=== PATIENT | male | born 1995 | race Caucasian/White ===

== ENCOUNTER 2016-07-15 20:37 | Emergency (ER) | payer BC, OTHER ==
[~2016-07-15] VITALS: Ht 170.2 cm; Wt 67.5 kg
[2016-07-15 20:38] VITALS: Ht 170.2 cm; Wt 67.5 kg
[2016-07-15] MEDS ORDERED: KETOROLAC 15 MG INJ IM STA (21:24)
--- NOTE | 2016-07-15 21:43 | ERD ---
ER Documentation Chief Complaint Date/Time DATE: 07/15/16 TIME: 21:39 Chief Complaint right hand pain/injury- hit hand against table HPI Patient is a 20-year-old male who presents to the ED with right hand pain and wrist pain after sustaining an injury today. He states that about 30 minutes ago he hit his hand on the table. He states that he was upset that his cat spilled water on his laptop and as a result hit his hand against the wooden table. Complains of pain to the medial aspect of his hand and medial aspect of his wrist. He denies elbow, forearm, arm or shoulder pain. He is able to move his wrist with slight pain. He denies numbness or tingling. He denies radiation of pain. He denies headache, dizziness or losing consciousness or blacking out. He denies hitting his head. He denies nausea, vomiting or diarrhea. He states that he has received a tetanus shot. Not taking anything for his symptoms. Patient is also complains of pain inside his ear. Denies drainage, fever, chills. Denies recent swimming. He also complains of sore throat. Denies cough, difficulty breathing or shortness of breath. Denies chest pain. Denies leg pain or swelling. He states that he has been taking penicillin and was diagnosed with strep throat. He has two days left of treatment. ROS All systems reviewed and are negative except as per history of present illness. Medications Home Meds Active Scripts Cetirizine Hcl* (Zyrtec*) 10 Mg Capsule, 10 MG PO DAILY, #20 TAB.CHEW Prov:BRITTANY MOMIN-Ramiro 07/15/16 Neomycin/Polymyxin/Hydrocort* (Cortisporin* Otic) 10 Ml Susp, 4 DROP BOTH EARS QID for 7 Days, EA Prov:BRITTANY MOMIN-C 07/15/16 Tramadol HCl (Tramadol HCl) 50 Mg Tablet, 50 MG PO Q4 Y for PAIN, #10 TAB Prov:BRITTANY MOMINC 07/15/16 Ibuprofen* (Motrin*) 600 Mg Tab, 600 MG PO Q6, #30 TAB Prov:BRITTANY MOMIN-C 07/15/16 Allergies Allergies: Coded Allergies: No Known Allergy (Unverified , 07/15/16) PMhx/Soc Medical and Surgical Hx: pt denies Medical Hx, pt denies Surgical Hx History of Surgery: No Anesthesia Reaction: No Hx Neurological Disorder: No Hx Respiratory Disorders: No Hx Cardiac Disorders: No Hx Psychiatric Problems: No Hx Miscellaneous Medical Probl: No Hx Alcohol Use: No Hx Substance Use: Yes (marijuana) Hx Tobacco Use: Yes (1 pack/day) Smoking Status: Current every day smoker Physical Exam Vitals Vital Signs Date Time Temp Pulse Resp B/P Pulse Ox O2 Delivery O2 Flow Rate FiO2 07/15/16 20:38 96.0 70 20 133/80 100 Physical Exam GENERAL: Well-developed, well-nourished male. Appears in no acute distress. HEAD: Normocephalic, atraumatic. NECK: Supple. No lymphadenopathy or thyromegaly. No meningismus. negative kernig. negative brudinski. LUNG: Clear to auscultation bilaterally. No rhonchi, wheezing, rales or coarse breath sounds. HEART: Regular rate and rhythm. No murmurs, rubs or gallops. ORTHO: no deformities. tenderness to medial wrist and medial aspect of hand. ecchymosis on medial aspect of hand. flexion of dip and pip joint. no snuffbox tenderness. no pain in forearm or elbow. radial, ulnar and median nerve intact. no deformities, stepoffs. no lacerations or open wounds. no signs of infection. no abrasions. Extremities: Equal pulses bilaterally. No peripheral clubbing, cyanosis or edema. No unilateral leg swelling. NEUROLOGIC: Alert and oriented. Moving all four extremities. 5/5 strength in all extremities. Normal speech. Steady gait. SKIN: Normal color. Warm and dry. No rashes or lesions. Capillary refill < 2 seconds Results 24 hrs Current Medications Medications (Trade) Dose Ordered Sig/Isabella Route PRN Reason Start Time Stop Time Status Last Admin Dose Admin Ketorolac Tromethamine (Toradol) 15 mg ONCE STAT IM 07/15/16 21:24 07/15/16 21:28 DC 07/15/16 21:48 Procedures/MDM ER COURSE: I kept the patient and/or family informed of laboratory and diagnostic imaging results throughout the emergency room course. EKG, MONITORS, & DIAGNOSTIC IMAGING: [place] [id number] Radiology Main Line: [phone] DIAGNOSTIC IMAGING REPORT Patient: PACO MARAVILLA : 1995 Age: 20 Sex: M MR #: [id number] DOS: 07/15/162123 Ordering MD: BRITTANY MOMIN PA-C Location: [facility] Room/Bed: PROCEDURE: XR Hand. CLINICAL INDICATION: Right hand trauma. TECHNIQUE: AP, oblique and lateral views of the right hand were obtained. COMPARISON: No prior studies are available for comparison. FINDINGS: There is normal mineralization. Mildly displaced oblique fracture at the proximal metaphysis of the fifth metacarpal. Remaining osseous structures are without acute fracture dislocation. There are no significant degenerative changes. There is no significant soft tissue swelling. IMPRESSION: Mildly displaced oblique fracture of the proximal metaphysis of the fifth metacarpal. RPTAT: [facility] Physician Noy Date Time Electronically viewed and signed by Pricila Thrasher Physician on 07/15/2016 22:33 RS/ CC: BRITTANY MOMIN PA-C [place] [id number] Radiology Main Line: [phone] DIAGNOSTIC IMAGING REPORT Patient: PACO MARAVILLA : 1995 Age: 20 Sex: M MR #: [id number] DOS: 07/15/162123 Ordering MD: BRITTANY MOMIN PA-C Location: [facility] Room/Bed: PROCEDURE: XR Wrist. CLINICAL INDICATION: Right wrist and hand trauma. TECHNIQUE: AP, lateral and oblique views of the right wrist were performed. COMPARISON: No prior studies are available for comparison. FINDINGS: Mildly displaced fracture at the base of the fifth metacarpal. Remaining osseous structures are without acute fracture dislocation. The bones appear well mineralized. The joint spaces are well preserved. The soft tissues appear intact. IMPRESSION: Mildly displaced fracture at the base of the fifth metacarpal. RPTAT: [facility] Physician Noy Date Time Electronically viewed and signed by Physician Noy on 07/15/2016 22:37 RS/ CC: BRITTANY MOMIN PA-C PROCEDURES: ED Splint. Ulnar gutter splint. Splint Assessment: Neurovascularly intact post splint placement with good fit. MEDICATIONS: Ibuprofen. MEDICAL DECISION MAKING: This is a 20-year-old male who presents with right hand pain. Vital signs were reviewed. Patient is afebrile. Patient is not hypoxic. Patient is not toxic or ill-appearing. Patient has mildly displaced fracture at the base of the fifth metacarpal. Low suspicion for dislocation,septic joint, compartment syndrome, osteomyelitis, cellulitis, avascular necrosis, neurological injury, vascular injury, tendon laceration, scaphoid or navicular fracture. I have consulted with Dr. Ríos and patient will be placed in an ulnar gutter splint. Patient's hand does not need to be reduced and does not need to be admitted at this time. Patient also has post nasal drip and otitis externa. Patient does not have signs or symptoms of strep throat. low suspicion for otitis externa, malignant otitis externa, TM perforation, mastoiditis, acute otitis media.. Low suspicion for peritonsillar abscess, strep pharyngitis, mononucleosis, dental abscess. Low suspicion for pneumonia, PE, pneumothorax, ACS, epiglottitis, obstruction, TB, pertussis, meningitis, sepsis. DISCHARGE: At this time, patient is stable for discharge and outpatient management with no new complaints during the ER course. Patient was sent home with ibuprofen and to follow-up with orthopedics in 3 days. I have given names of orthopedics in the area including [facility]. Patient will be discharged home with instructions to recheck for new or worsening symptoms such as fever, nausea, weakness, LOC and to follow up with primary care in the next 1-2 days. Patient was advised to return to the ER for any new or worsening symptoms. Plan was discussed and patient and/or family understands and agrees. Home instructions were given. Departure Diagnosis: Primary Impression: Metacarpal bone fracture Encounter type: initial encounter Metacarpal bone: fifth Fracture type: closed Metacarpal location: base Fracture alignment: displaced Laterality: right Qualified Code: S62.316A - Closed displaced fracture of base of fifth metacarpal bone of right hand, initial encounter Condition: Stable BRITTANY MOMIN PA-C Jul 15, 2016 21:43
--- NOTE | 2016-07-15 22:33 | RADRPT ---
PROCEDURE: XR Hand. CLINICAL INDICATION: Right hand trauma. TECHNIQUE: AP, oblique and lateral views of the right hand were obtained. COMPARISON: No prior studies are available for comparison. FINDINGS: There is normal mineralization. Mildly displaced oblique fracture at the proximal metaphysis of the fifth metacarpal. Remaining oss eous structures are without acute fracture dislocation. There are no significant degenerative changes. There is no significant soft tissue swelling. IMPRESSION: Mildly displaced oblique fracture of the proximal metaphysis of the fifth metacarpal. RPTAT: [facility] Physician Noy Date Time Electronically viewed and signed by Physician Noy on 07/15/2016 22:33 RS/
--- NOTE | 2016-07-15 22:37 | RADRPT ---
PROCEDURE: XR Wrist. CLINICAL INDICATION: Right wrist and hand trauma. TECHNIQUE: AP, lateral and oblique views of the right wrist were performed. COMPARISON: No prior studies are available for comparison. FINDINGS: Mildly displaced fracture at the base of the fifth metacarpal. Remaining osseous structures are wit hout acute fracture dislocation. The bones appear well mineralized. The joint spaces are well preser josie. The soft tissues appear intact. IMPRESSION: Mildly displaced fracture at the base of the fifth metacarpal. RPTAT: [facility] Physician Noy Date Time Electronically viewed and signed by Physician Noy on 07/15/2016 22:37 RS/
[2016-07-15] MEDS ORDERED: IBUP-1542 PO (23:06)
[2016-07-15] MEDS ORDERED: ULT50 PO (23:49)
[2016-07-15] MEDS ORDERED: NPH10OT BOTH EARS (23:53)
[2016-07-15] MEDS ORDERED: CETI10CA PO (23:54)
[2016-07-16 00:06] VITALS: BP 120/59
== END 2016-07-16 00:16 | disposition home or self-care (01) ==
LOC: FTE 20:37
DX: S62.316A Displaced fracture of base of fifth metacarpal bone, right hand, initial encounter for closed fracture (principal); F17.210 Nicotine dependence, cigarettes, uncomplicated; W22.03XA Walked into furniture, initial encounter; Y92.9 Unspecified place or not applicable
CPT/HCPCS: 29125; 73110; 73130; 96372; 99284; J1885